=== PATIENT | male | born 1975 | race Two or more races ===

== ENCOUNTER → 2018-03-07 | Emergency (ER) | payer OTHER ==
[~2018-03-07] VITALS: Ht 172.7 cm; Wt 81.6 kg
== END | disposition home or self-care (01) ==
LOC: ER 04:09
DX: S01.01XA Laceration without foreign body of scalp, initial encounter (principal); W22.8XXA Striking against or struck by other objects, initial encounter; Y93.89 Activity, other specified; Y92.89 Other specified places as the place of occurrence of the external cause; Y99.8 Other external cause status